=== PATIENT | female | born 1975 | race Caucasian/White ===

== ENCOUNTER 2018-07-08 08:15 | Emergency (ER) | payer MEDICAID ==
[~2018-07-08] VITALS: Ht 152.4 cm; Wt 90.0 kg
[2018-07-08 08:20] VITALS: BP 142/84
--- NOTE | 2018-07-08 08:20 | NUR ---
PT AMBULATES TO BED 4
--- NOTE | 2018-07-08 08:29 | NUR ---
43 Y/O F PRESENTS TO THE ED W/C/O EPIGASTRIC PAIN THAT SHE HAS HAD OFF AND ON FOR ONE YEAR. PT STATES IT GETS WORSE AT TIMES. PT DENIES THAT IT RADIATES. PT DENIES V/D +NAUSEA; SKIN IS INTACT, PINK/WARM/DRY; AAOX4, PERRL, WITH EVEN AND STEADY GAIT; LUNGS CLEAR BL, BREATHING UNLABORED; HR EVEN AND REGULAR, BL PERIPHERAL PULSES PRESENT; BS ACTIVE X4. PT DENIES ANY FEVER, CP, SOB, OR COUGH AT THIS TIME; PT STATES 6/10 PAIN AT THIS TIME; VSS; PATIENT POSITIONED FOR COMFORT; HOB ELEVATED; BEDRAILS UP X2; BED DOWN.
--- NOTE | 2018-07-08 08:39 | NUR ---
Patient being evaluated by physician at bedside.
--- NOTE | 2018-07-08 08:52 | NUR ---
PT TAKEN TO X-RAY VIA WHEELCHAIR
--- NOTE | 2018-07-08 09:04 | NUR ---
Sophie gabriel in [facility] - 07/08/18 at 0904 by SANJANA PT BACK FROM CT AT THIS TIME.
--- NOTE | 2018-07-08 09:04 | NUR ---
PT RETURNED FROM XRAY
[2018-07-08 09:29] VITALS: BP 135/82
--- NOTE | 2018-07-08 09:31 | NUR ---
Patient discharged with v/s stable. Written and verbal after care instructions given and explained. Patient alert, oriented and verbalized understanding of instructions. Ambulatory with steady gait. All questions addressed prior to discharge. ID band removed. Patient advised to follow up with PMD. Rx of MAGNESIUM CITRATE, MIRILAX given. Patient educated on indication of medication including possible reaction and side effects. Opportunity to ask questions provided and answered.
== END 2018-07-08 09:31 | disposition home or self-care (01) ==
LOC: MED 08:15
DX: K59.00 Constipation, unspecified (principal); K21.9 Gastro-esophageal reflux disease without esophagitis
CPT/HCPCS: 74021; 81002; 81025; 99283